=== PATIENT | female | born 1970 | race Hispanic/Latino ===

== ENCOUNTER 2016-11-30 22:18 | Emergency (ER) | payer SELFPAY ==
[2016-12-01 01:07] LABS: Basophils % (Auto) 0.7 % (0.0-1.8); Eosinophils % (Auto) 1.1 % (0.0-4.3); Hematocrit 41.1 % (30.3-42.9); Hemoglobin 13.2 gm/dl (10.1-14.3); Mean Corpuscular HGB Conc 32 % (30-34); Mean Corpuscular Hemoglobin 30 pg (28-32); Mean Corpuscular Volume 95 fl (79-97); Platelet Count 322 K/mm3 (140-440); Red Blood Count 4.33 M/mm3 (3.65-5.03); Red Cell Distribution Width 14.7 % (13.2-15.2); White Blood Count 9.5 K/mm3 (4.5-11.0)
[2016-12-01 01:21] LABS: Alanine Aminotransferase 12 units/L (7-56); Albumin 4.1 g/dL (3.9-5); Alkaline Phosphatase 64 units/L (35-129); Anion Gap 18 mmol/L; Blood Urea Nitrogen 15 mg/dL (7-17); Calcium 9.1 mg/dL (8.4-10.2); Carbon Dioxide 24 mmol/L (22-30); Chloride 99.9 mmol/L (98-107); Glucose 107 mg/dL (65-100); Lipase 19 units/L (13-60); Potassium 4.2 mmol/L (3.6-5.0); Sodium 138 mmol/L (137-145); Total Protein 8.1 g/dL (6.3-8.2)
[2016-12-01 01:58] LABS: Bilirubin,Urine NEG (Negative); Blood,Urine SM (Negative); Ketones,Urine NEG (Negative); Leukocyte Esterase,Urine NEG (Negative); Mucus,Urine FEW /HPF; Nitrite,Urine NEG (Negative); Protein,Urine <15 mg/dL mg/dL (Negative)
[2016-12-01] MEDS ORDERED: ALUM-MAG HYDROX-SIMETH 200-200-20MG/5ML PO ONE (08:30)
--- NOTE | 2016-12-01 08:49 | Emergency Department Report ---
ED Abdominal Pain HPI - General Chief Complaint: Abdominal Pain Stated Complaint: ABD PAIN Time Seen by Provider: 12/01/16 08:30 Source: patient Mode of arrival: Ambulatory Limitations: No Limitations - History of Present Illness MD Complaint: abdominal pain -: Gradual Location: diffuse Radiation: none Migration to: no migration Severity: mild Severity scale (0 -10): 2 Quality: cramping, fullness Consistency: intermittent, now resolved Improves With: nothing Worsens With: eating, movement Associated Symptoms: denies: nausea, vomiting, diarrhea, fever, chills, constipation, dysuria, hematemesis, hematochezia, melena, hematuria, anorexia, syncope - Related Data Previous Rx's Medication Instructions Recorded Last Taken Type Ibuprofen [Motrin] 600 mg PO Q8H PRN #60 tablet 02/20/13 Unknown Rx Sulfamethoxazole/Trimethoprim 1 each PO BID #20 tablet 02/20/13 Unknown Rx [Bactrim DS] Cephalexin [Keflex] 500 mg PO Q6H #20 capsule 04/30/13 Unknown Rx Ibuprofen [Motrin] 800 mg PO TID PRN #20 tablet 04/30/13 Unknown Rx Sulfamethoxazole/Trimethoprim 1 each PO BID #20 tablet 04/30/13 Unknown Rx [Bactrim DS] Amoxicillin [Trimox CAP] 2 tab PO BID #40 capsule 03/13/14 Unknown Rx Butalb/Acetamin/Caff 50-325-40 1 tab PO Q8H PRN #10 tablet 03/13/14 Unknown Rx [Fioricet] Cyclobenzaprine [Flexeril 10mg] 10 mg PO TID PRN #10 tablet 03/13/14 Unknown Rx Fluticasone [Flonase] 1 spray NS QDAY #1 bottle 03/13/14 Unknown Rx Ibuprofen [Motrin 600 MG tab] 600 mg PO Q8H PRN #30 tablet 03/13/14 Unknown Rx Acetaminophen with Codeine 1 each PO Q6HR PRN #20 tablet 10/09/14 Unknown Rx [Acetaminophen-Codeine #4 TAB] Sulfamethoxazole/Trimethoprim 1 each PO BID #20 tablet 10/09/14 Unknown Rx [Bactrim Ds] Mag Hydrox/Al Hydrox/Simeth 148 ml PO BID #120 oral.susp 12/01/16 Unknown Rx [Maalox Advanced Suspension] Allergies Allergy/AdvReac Type Severity Reaction Status Date / Time No Known Allergies Allergy Unverified 02/20/13 10:16 ED Review of Systems ROS: Stated complaint: ABD PAIN Other details as noted in HPI Comment: All other systems reviewed and negative ED Past Medical Hx - Past Medical History Previous Medical History?: Yes Hx Hypertension: No Hx CVA: No Hx Heart Attack/AMI: No Hx Congestive Heart Failure: No Hx Diabetes: Yes Hx Deep Vein Thrombosis: No Hx Pulmonary Embolism: No Hx Liver Disease: No Hx Sickle Cell Disease: No Hx Seizures: No Hx Kidney Stones: No - Surgical History Additional Surgical History: Student,.. 3 para 2 - Social History Smoking Status: Never Smoker - Medications Home Medications: Home Medications Medication Instructions Recorded Confirmed Last Taken Type Ibuprofen [Motrin] 600 mg PO Q8H PRN #60 tablet 02/20/13 Unknown Rx Sulfamethoxazole/Trimethoprim 1 each PO BID #20 tablet 02/20/13 Unknown Rx [Bactrim DS] Cephalexin [Keflex] 500 mg PO Q6H #20 capsule 04/30/13 Unknown Rx Ibuprofen [Motrin] 800 mg PO TID PRN #20 tablet 04/30/13 Unknown Rx Sulfamethoxazole/Trimethoprim 1 each PO BID #20 tablet 04/30/13 Unknown Rx [Bactrim DS] Amoxicillin [Trimox CAP] 2 tab PO BID #40 capsule 03/13/14 Unknown Rx Butalb/Acetamin/Caff 50-325-40 1 tab PO Q8H PRN #10 tablet 03/13/14 Unknown Rx [Fioricet] Cyclobenzaprine [Flexeril 10mg] 10 mg PO TID PRN #10 tablet 03/13/14 Unknown Rx Fluticasone [Flonase] 1 spray NS QDAY #1 bottle 03/13/14 Unknown Rx Ibuprofen [Motrin 600 MG tab] 600 mg PO Q8H PRN #30 tablet 03/13/14 Unknown Rx Acetaminophen with Codeine 1 each PO Q6HR PRN #20 tablet 10/09/14 Unknown Rx [Acetaminophen-Codeine #4 TAB] Sulfamethoxazole/Trimethoprim 1 each PO BID #20 tablet 10/09/14 Unknown Rx [Bactrim Ds] Mag Hydrox/Al Hydrox/Simeth 148 ml PO BID #120 oral.susp 12/01/16 Unknown Rx [Maalox Advanced Suspension] ED Physical Exam - General Limitations: No Limitations General appearance: alert, in no apparent distress - Head Head exam: Present: atraumatic, normocephalic - Eye Eye exam: Present: normal appearance, PERRL - ENT ENT exam: Present: normal orophraynx, mucous membranes moist - Neck Neck exam: Present: normal inspection - Respiratory Respiratory exam: Present: normal lung sounds bilaterally. Absent: respiratory distress - Cardiovascular Cardiovascular Exam: Present: regular rate, normal rhythm. Absent: systolic murmur, diastolic murmur, rubs, gallop - GI/Abdominal GI/Abdominal exam: Present: soft, normal bowel sounds. Absent: distended, tenderness, guarding, rebound, rigid - Extremities Exam Extremities exam: Present: normal inspection - Back Exam Back exam: Present: normal inspection - Neurological Exam Neurological exam: Present: alert, oriented X3 - Psychiatric Psychiatric exam: Present: normal affect, normal mood - Skin Skin exam: Present: warm, dry, intact, normal color. Absent: rash ED Course Vital Signs 12/01/16 12/01/16 12/01/16 00:34 03:18 08:34 Temperature 98.3 F 97.5 F L 98.2 F Pulse Rate 62 67 70 Respiratory 16 18 18 Rate Blood Pressure 129/78 126/83 Blood Pressure 133/86 [Left] O2 Sat by Pulse 99 98 100 Oximetry ED Medical Decision Making - Lab Data Result diagrams: 12/01/16 00:46 12/01/16 00:46 - Radiology Data Radiology results: report reviewed, image reviewed - Medical Decision Making patient doing well here in the er , normal labs and xray and ct with no acute abnormalities, no fever, reassess with minimal abdominal tenderness , no guarding or rebound Critical care attestation.: If time is entered above; I have spent that time in minutes in the direct care of this critically ill patient, excluding procedure time. ED Disposition Clinical Impression: Abdominal pain Disposition: DC-01 TO HOME OR SELFCARE Is pt being admited?: No Does the pt Need Aspirin: No Condition: Good Instructions: Abdominal Pain (ED) Prescriptions: Mag Hydrox/Al Hydrox/Simeth [Maalox Advanced Suspension] 148 ml PO BID #120 oral.susp Referrals: PRIMARY CARE, [Primary Care Provider] - 3-5 Days Time of Disposition: 11:04
--- NOTE | 2016-12-01 08:51 | XRay Report ---
ROUTINE CHEST, TWO VIEWS: HISTORY: Shortness of breath. The trachea, heart, mediastinal contour, lung lenz and bony thorax are unremarkable. IMPRESSION: Unremarkable chest x-ray.
--- NOTE | 2016-12-01 09:33 | Cat Scan Report ---
CT OF THE ABDOMEN AND PELVIS WITHOUT CONTRAST HISTORY: Abdominal pain. TECHNIQUE: Helical CT without contrast. Sagittal and coronal reformatted images. FINDINGS: Compared to 10/09/14. A 5.7 mm renal stone is noted at the inferior pole of the left kidney. The kidneys, ureters and bladder are within normal limits otherwise. The uterus and adnexa are unremarkable. Within the limits of a noncontrast exam, the remaining abdominal and pelvic viscera are within normal limits. The liver, biliary system, pancreas, spleen, and adrenal glands are unremarkable. The bowel loops are normal caliber and wall thickness. Normal appendix. The aorta is normal caliber. No ascites, bulky adenopathy or inflammatory changes. The lung bases are clear. Normal heart size. No suspicious bony lesion. IMPRESSION: Nonobstructing left renal stone. No acute abdominal process appreciated.
[2016-12-01 11:23] VITALS: BP 126/77
== END 2016-12-01 11:21 | disposition home or self-care (01) ==
LOC: ED 22:18
DX: R10.84 Generalized abdominal pain (principal); E11.9 Type 2 diabetes mellitus without complications
CPT/HCPCS: 36415; 71020; 74176; 80053; 81001; 83690; 84484; 84703; 85025; 93005; 93010

== ENCOUNTER 2017-04-09 13:38 | Emergency (ER) | payer SELFPAY ==
[2017-04-09 16:21] LABS: Basophils % (Auto) 0.2 % (0.0-1.8); Eosinophils % (Auto) 0.2 % (0.0-4.3); Hematocrit 39.6 % (30.3-42.9); Hemoglobin 13.4 gm/dl (10.1-14.3); Mean Corpuscular HGB Conc 34 % (30-34); Mean Corpuscular Hemoglobin 32 pg (28-32); Mean Corpuscular Volume 94 fl (79-97); Platelet Count 287 K/mm3 (140-440); Red Blood Count 4.23 M/mm3 (3.65-5.03); Red Cell Distribution Width 13.5 % (13.2-15.2)
[2017-04-09 16:38] LABS: Alanine Aminotransferase 15 units/L (7-56); Albumin 4.1 g/dL (3.9-5); Albumin/Globulin Ratio 1.2 %; Alkaline Phosphatase 64 units/L (35-129); Anion Gap 17 mmol/L; BUN/Creatinine Ratio 33; Blood Urea Nitrogen 10 mg/dL (7-17); Calcium 9.1 mg/dL (8.4-10.2); Carbon Dioxide 25 mmol/L (22-30); Chloride 99.7 mmol/L (98-107); Glucose 119 mg/dL (65-100); Lipase 26 units/L (13-60); Sodium 138 mmol/L (137-145); Total Protein 7.4 g/dL (6.3-8.2)
[2017-04-10] MEDS ORDERED: MORPHINE IV ONE (02:06)
[2017-04-10] MEDS ORDERED: ZOFRAN IV ONE (02:06)
[2017-04-10] MEDS ORDERED: NACL 0.9% 1000 ML 1,000 ML IV ONE (02:06)
[2017-04-10] MEDS ORDERED: ASTRAMORPH PF IV ONE (02:06)
--- NOTE | 2017-04-10 02:10 | Emergency Department Report ---
ED Abdominal Pain HPI - General Chief Complaint: Abdominal Pain Stated Complaint: ABDOMINAL PAIN Time Seen by Provider: 04/10/17 01:40 Source: patient Mode of arrival: Ambulatory Limitations: No Limitations - History of Present Illness Initial Comments: 46 yo female who comes in today due to abdominal pain which started on yesterday. The patient states that the abdominal pain is diffuse, 8/10, with no radiation, nausea/vomiting. Denies any pertinent past medical history. MD Complaint: abdominal pain Onset/Timin -: days(s) Location: diffuse Radiation: none Severity: moderate Severity scale (0 -10): 8 Quality: aching, sharp Consistency: constant Improves With: nothing Worsens With: eating - Related Data Previous Rx's Medication Instructions Recorded Last Taken Type Ibuprofen [Motrin] 600 mg PO Q8H PRN #60 tablet 02/20/13 Unknown Rx Sulfamethoxazole/Trimethoprim 1 each PO BID #20 tablet 02/20/13 Unknown Rx [Bactrim DS] Cephalexin [Keflex] 500 mg PO Q6H #20 capsule 04/30/13 Unknown Rx Ibuprofen [Motrin] 800 mg PO TID PRN #20 tablet 04/30/13 Unknown Rx Sulfamethoxazole/Trimethoprim 1 each PO BID #20 tablet 04/30/13 Unknown Rx [Bactrim DS] Amoxicillin [Trimox CAP] 2 tab PO BID #40 capsule 03/13/14 Unknown Rx Butalb/Acetamin/Caff 50-325-40 1 tab PO Q8H PRN #10 tablet 03/13/14 Unknown Rx [Fioricet] Cyclobenzaprine [Flexeril 10mg] 10 mg PO TID PRN #10 tablet 03/13/14 Unknown Rx Fluticasone [Flonase] 1 spray NS QDAY #1 bottle 03/13/14 Unknown Rx Ibuprofen [Motrin 600 MG tab] 600 mg PO Q8H PRN #30 tablet 03/13/14 Unknown Rx Acetaminophen with Codeine 1 each PO Q6HR PRN #20 tablet 10/09/14 Unknown Rx [Acetaminophen-Codeine #4 TAB] Sulfamethoxazole/Trimethoprim 1 each PO BID #20 tablet 10/09/14 Unknown Rx [Bactrim Ds] Mag Hydrox/Aluminum Hyd/Simeth 148 ml PO BID #120 oral.susp 12/01/16 Unknown Rx [Maalox Advanced Suspension] Ciprofloxacin HCl [Cipro] 250 mg PO BID #6 tablet 04/10/17 Unknown Rx Allergies Allergy/AdvReac Type Severity Reaction Status Date / Time No Known Allergies Allergy Verified 04/10/17 02:12 ED Review of Systems ROS: Stated complaint: ABDOMINAL PAIN Other details as noted in HPI Eyes: denies: eye pain, eye discharge, vision change ENT: denies: ear pain, throat pain Respiratory: denies: cough, shortness of breath, wheezing Cardiovascular: denies: chest pain, palpitations Endocrine: no symptoms reported Gastrointestinal: as per HPI Musculoskeletal: denies: back pain, joint swelling, arthralgia Skin: denies: rash, lesions Neurological: denies: headache, weakness, paresthesias Psychiatric: denies: anxiety, depression Hematological/Lymphatic: denies: easy bleeding, easy bruising ED Past Medical Hx - Past Medical History Previous Medical History?: Yes Hx Hypertension: No Hx CVA: No Hx Heart Attack/AMI: No Hx Congestive Heart Failure: No Hx Diabetes: Yes Hx Deep Vein Thrombosis: No Hx Pulmonary Embolism: No Hx Liver Disease: No Hx Sickle Cell Disease: No Hx Seizures: No Hx Kidney Stones: No - Surgical History Additional Surgical History: Student,.. 3 para 2 - Social History Smoking Status: Never Smoker - Medications Home Medications: Home Medications Medication Instructions Recorded Confirmed Last Taken Type Ibuprofen [Motrin] 600 mg PO Q8H PRN #60 tablet 02/20/13 Unknown Rx Sulfamethoxazole/Trimethoprim 1 each PO BID #20 tablet 02/20/13 Unknown Rx [Bactrim DS] Cephalexin [Keflex] 500 mg PO Q6H #20 capsule 04/30/13 Unknown Rx Ibuprofen [Motrin] 800 mg PO TID PRN #20 tablet 04/30/13 Unknown Rx Sulfamethoxazole/Trimethoprim 1 each PO BID #20 tablet 04/30/13 Unknown Rx [Bactrim DS] Amoxicillin [Trimox CAP] 2 tab PO BID #40 capsule 03/13/14 Unknown Rx Butalb/Acetamin/Caff 50-325-40 1 tab PO Q8H PRN #10 tablet 03/13/14 Unknown Rx [Fioricet] Cyclobenzaprine [Flexeril 10mg] 10 mg PO TID PRN #10 tablet 03/13/14 Unknown Rx Fluticasone [Flonase] 1 spray NS QDAY #1 bottle 03/13/14 Unknown Rx Ibuprofen [Motrin 600 MG tab] 600 mg PO Q8H PRN #30 tablet 03/13/14 Unknown Rx Acetaminophen with Codeine 1 each PO Q6HR PRN #20 tablet 10/09/14 Unknown Rx [Acetaminophen-Codeine #4 TAB] Sulfamethoxazole/Trimethoprim 1 each PO BID #20 tablet 10/09/14 Unknown Rx [Bactrim Ds] Mag Hydrox/Aluminum Hyd/Simeth 148 ml PO BID #120 oral.susp 12/01/16 Unknown Rx [Maalox Advanced Suspension] Ciprofloxacin HCl [Cipro] 250 mg PO BID #6 tablet 04/10/17 Unknown Rx ED Physical Exam - General Limitations: No Limitations General appearance: alert, in no apparent distress - Head Head exam: Present: atraumatic, normocephalic - Eye Eye exam: Present: normal appearance - ENT ENT exam: Present: mucous membranes moist - Neck Neck exam: Present: normal inspection - Respiratory Respiratory exam: Present: normal lung sounds bilaterally. Absent: respiratory distress - Cardiovascular Cardiovascular Exam: Present: regular rate, normal rhythm. Absent: systolic murmur, diastolic murmur, rubs, gallop - GI/Abdominal GI/Abdominal exam: Present: tenderness (diffuse/periumbilical ), hypoactive bowel sounds - Back Exam Back exam: Present: normal inspection - Neurological Exam Neurological exam: Present: alert, oriented X3 - Psychiatric Psychiatric exam: Present: normal affect, normal mood - Skin Skin exam: Present: warm, dry, intact, normal color. Absent: rash ED Course Vital Signs 04/09/17 04/09/17 15:36 22:27 Temperature 98.1 F 97.8 F Pulse Rate 93 H 89 Respiratory 18 10 L Rate Blood Pressure 131/77 118/74 O2 Sat by Pulse 98 99 Oximetry - Reevaluation(s) Reevaluation #1: 04/10/17 04:57 CT abdomen and pelvis unremarkable. ED Medical Decision Making - Lab Data Result diagrams: 04/09/17 16:01 04/09/17 16:01 Critical care attestation.: If time is entered above; I have spent that time in minutes in the direct care of this critically ill patient, excluding procedure time. ED Disposition Clinical Impression: Abdominal pain, UTI (urinary tract infection) Disposition: TO HOME OR SELFCARE Is pt being admited?: No Does the pt Need Aspirin: No Condition: Stable Instructions: Abdominal Pain (ED), Acute Abdominal Pain (ED), Urinary Tract Infection in Women (ED) Additional Instructions: Take medicine as prescribed. Return to the nearest ED for worsening abdominal pain, nausea, vomiting, fever, chills, or bloody diarrhea. Prescriptions: Ciprofloxacin HCl [Cipro] 250 mg PO BID #6 tablet Referrals: PRIMARY CARE, [Primary Care Provider] - 3-5 Days Time of Disposition: 05:00
[2017-04-10 03:05] LABS: Bilirubin,Urine NEG (Negative); Blood,Urine NEG (Negative); Ketones,Urine NEG (Negative); Leukocyte Esterase,Urine SM (Negative); Mucus,Urine 2+ /HPF; Nitrite,Urine NEG (Negative)
--- NOTE | 2017-04-10 04:34 | Cat Scan Report ---
FINAL REPORT EXAM: CT ABDOMEN PELVIS W CON HISTORY: ABDOMINAL PAIN TECHNIQUE: Routine axial imaging was obtained of the abdomen pelvis following the intravenous injection of iodinated contrast. Sagittal and coronal reconstructions were reviewed along with delayed images. The previous study of 12/01/2016 was reviewed for correlation. FINDINGS: The lung bases are clear. Pleural fluid is not seen. The small hiatal hernia at the GE junction. The liver,, gallbladder, pancreas, spleen and adrenal glands appear normal. The kidneys enhance normally. There is a 3.5 cm partially air-filled structure medial to the 2nd portion of the duodenum. This most likely represents a diverticulum with debris in it. There are no inflammatory changes. The vascular structures appear normal. The bowel loops are normal in caliber. There is a large amount retained feces in the colon. The appendix is not identified. In the pelvis the uterus and bladder appear normal. There is a 2.5 cm right ovarian cyst. Free fluid is not seen. There is no evidence of adenopathy. The skeletal structures are well-maintained. IMPRESSION: No acute process in the abdomen and pelvis. Partially air-filled 3.5 cm in diameter structure medial to the 2nd portion of the duodenum most likely representing a diverticulum with debris in it. Appendix not identified. 2.5 cm right ovarian cyst.
[2017-04-10 06:11] VITALS: BP 116/72
== END 2017-04-10 06:11 | disposition home or self-care (01) ==
LOC: ED 13:38
DX: N39.0 Urinary tract infection, site not specified (principal); E11.9 Type 2 diabetes mellitus without complications
CPT/HCPCS: 36415; 74177; 80053; 81001; 81025; 83690; 85025; 96361; 96374; 99284; J2270; J2405; J7030; Q9967